=== PATIENT | male | born 1950 | race Asian ===

== ENCOUNTER 2024-07-02 13:30 | Day surgery (SDC) | payer MEDICARE, MEDICAID, SELFPAY ==
[2024-07-02] VITALS (11 sets, daily range): BP systolic 119–145; BP diastolic 70–84; PULSE 63–72; RESP 15–20; TEMP 36.2–36.6; O2SAT 69–100; BMI 26.9
[2024-07-02] MEDS: SODIUM CHLORIDE 0.9% 100 ML IV (14:53)
[2024-07-02] MEDS: fentaNYL CIT INJ 50 mCg/ML AMP 2ML (ASD USE ONLY) 25 MCG IV (14:54)
[2024-07-02] MEDS: MIDAZOLAM INJ 1 MG/ML VIAL 2 ML (ASD USE ONLY) 2 MG IV (14:57)
--- NOTE | 2024-07-02 15:16 | SUR.PHASEII ---
PATIENT INTO RECOVERY WITH NO ACUTE DISTRESS NOTED, V/S STABLE, NO COMPLAINTS OF PAIN OR NAUSEA AT THIS TIME. PATIENT ACTIVELY PASSING FLATUS. REPORT RECEIVED FROM RAJWINDER RODRIGEZ.
== END 2024-07-02 16:04 | disposition home or self-care (01) ==
PROVIDERS: Referring Provider Surgery; Visit Provider Surgery
PROC: 0DBE8ZX Excision of Large Intestine, Via Natural or Artificial Opening Endoscopic, Diagnostic (ICD-10-PCS; CPT 45380; principal; 2024-07-02 14:30)
DX: K64.8 Other hemorrhoids (principal); K62.5 Hemorrhage of anus and rectum
CPT/HCPCS: 45378; J2250; J3010; J7050